=== PATIENT | female | born 1990 | race Two or more races ===

== ENCOUNTER 2017-11-25 18:05 | Emergency (ER) | payer OTHER ==
[~2017-11-25] VITALS: Ht 154.9 cm; Wt 65.8 kg
[2017-11-25 18:21] VITALS: BP 130/80
--- NOTE | 2017-11-25 18:27 | Emergency Room Report ---
History of Present Illness General Chief Complaint: Eye Problems Source: Patient Present Illness HPI 27-year-old female presents to the emergency department complaining of 5/10 in severity right eye irritation that she describes as scratching sensation x2 days. Patient reports erythema and increased lacrimation. Patient denies contact lens use. Patient denies discharge or painful eye movements. Patient reports that initially her eye was very itchy. Patient denies swelling of the lids, crusting or appreciable trauma to the eye. Denies: Loss of vision, Floaters, Flashing lights, or Diplopia/blurry vision,. Allergies: Coded Allergies: No Known Allergies (Unverified , 11/25/17) Patient History Past Medical History: see triage record Past Surgical History: none Pertinent Family History: none Last Menstrual Period: 11/07/17 Immunizations: UTD Reviewed Nursing Documentation: PMH: Agreed, PSxH: Agreed Nursing Documentation-PMH Past Medical History: No Stated History Review of Systems All Other Systems: negative except mentioned in HPI Physical Exam Vital Signs Date Time Temp Pulse Resp B/P (MAP) Pulse Ox O2 Delivery O2 Flow Rate FiO2 11/25/17 18:21 98.8 84 18 130/80 99 Room Air Sp02 EP Interpretation: reviewed, normal General Appearance: no apparent distress, alert, GCS 15, non-toxic Head: normocephalic, atraumatic Eyes: right eye fluoroscene uptake - Increase fluorescein uptake in a linear fashion in the 7 o 'clock position of the Right eye, there is no involvement of the iris or pupil. Negative Divya sign. , bilateral eye normal inspection, bilateral eye PERRL, bilateral eye visual acuity - 20/50 bilateral eyes ENT: hearing grossly normal, normal voice Neck: full range of motion Respiratory: lungs clear, normal breath sounds, speaking full sentences Cardiovascular #1: regular rate, rhythm Musculoskeletal: back normal, gait/station normal, normal range of motion Neurologic: alert, oriented x3, responsive, motor strength/tone normal, sensory intact, speech normal, grossly normal Psychiatric: judgement/insight normal Skin: normal color, no rash, warm/dry, well hydrated Medical Decision Making PA Attestation Dr. salguero is my supervising Physician whom patient management has been discussed with. Diagnostic Impression: Primary Impression: Corneal abrasion, right Qualified Codes: S05.01XA - Injury of conjunctiva and corneal abrasion without foreign body, right eye, initial encounter ER Course 27-year-old female presents to the emergency department complaining of 5/10 in severity right eye irritation that she describes as scratching sensation x2 days. Patient reports erythema and increased lacrimation. Patient denies contact lens use. Patient denies discharge or painful eye movements. Patient reports that initially her eye was very itchy. Patient denies swelling of the lids, crusting or appreciable trauma to the eye. Denies: Loss of vision, Floaters, Flashing lights, or Diplopia/blurry vision,. - Pt [reports/denies] Contact lens use. Ddx considered but are not limited to: corneal abrasion, acute glaucoma, globe rupture, FB, Corneal Ulcer, conjunctivitis. Iridis Vital signs: are WNL, pt. is afebrile H&PE are most consistent with: corneal abrasion ORDERS: -Tetracaine and Fluorescein Stain of the Right eye: -Increase fluorescein uptake in a linear fashion in the 7 o 'clock position of the Right eye, there is no involvement of the iris or pupil. Negative Divya sign. Pt. had positive relief of pain with tetracaine drops. there was negative evidence of Fb, deep ulcer, or rupture. ED INTERVENTIONS: none at this time. DISCHARGE: At this time pt. is stable for d/c to home. Will provide printed patient care instructions, and any necessary prescriptions. Care plan and follow up instructions have been discussed with the patient prior to discharge. . Last Vital Signs Date Time Temp Pulse Resp B/P (MAP) Pulse Ox O2 Delivery O2 Flow Rate FiO2 11/25/17 18:21 98.8 84 18 130/80 99 Room Air Disposition: HOME, SELF-CARE Condition: Stable Scripts Acetaminophen* (TYLENOL EXTRA STRENGTH*) 500 Mg Tablet 500 MG ORAL Q6H, #20 TAB 0 Refills Prov: Magdalena Mensah P.A. 11/25/17 Ofloxacin (OCUFLOX) 5 Ml Drops 2 DROP OP TID, #5 ML Prov: Magdalena Mensah P.A. 11/25/17 Patient Instructions: Corneal Abrasion Additional Instructions: Take medications as directed. Follow up with a OPHTHALMOLOGY with-in 72 HOurs, even if your symptoms have resolved. --Please review list of primary care clinics, if you do not already have a primary care provider Return sooner to ED if new symptoms occur, or current symptoms become worse. - Please note that this Emergency Department Report was dictated using [employer] room supervisor technology software, occasionally this can lead to erroneous entry secondary to interpretation by the dictation equipment. Magdalena Mensah Nov 25, 2017 18:26
[2017-11-25] MEDS ORDERED: Fluorescein Strips RIGHT EYE ONE (18:30)
[2017-11-25] MEDS ORDERED: Tetracaine 0.5% Opth 4ml Soln RIGHT EYE ONE (18:30)
[2017-11-25] MEDS ORDERED: TYLENOL EXTRA500 MG ORAL (19:04)
[2017-11-25] MEDS ORDERED: OCUFLOX5 ML OP (19:04)
[2017-11-25 19:09] VITALS: BP 134/84
== END 2017-11-25 19:09 | disposition home or self-care (01) ==
LOC: EMR 18:31
DX: S05.01XA Injury of conjunctiva and corneal abrasion without foreign body, right eye, initial encounter (principal); X58.XXXA Exposure to other specified factors, initial encounter; Y92.9 Unspecified place or not applicable
CPT/HCPCS: 99283

== ENCOUNTER 2018-01-08 19:29 | Emergency (ER) | payer OTHER ==
[~2018-01-08] VITALS: Ht 154.9 cm; Wt 63.5 kg
[~2018-01-08 19:29] MED LIST: OCUFLOX5 ML OP; TYLENOL EXTRA500 MG ORAL
[2018-01-08] MEDS ORDERED: Ketorolac 30mg Inj IM ONE (20:45)
--- NOTE | 2018-01-08 21:08 | Emergency Room Report ---
History of Present Illness General Chief Complaint: Lower Extremity Injury Source: Patient Present Illness HPI 27 yo female patient presents to ER complaining of left knee pain since yesterday. Reports moving couch last night using leg and began feeling pain symptoms afterwards. Report hit [place], not knee; denies pain in clemens or lower leg; reports mild swelling of knee; denies clemens swelling. Reports pain with knee extension. Reports taking pain medication last night, none today. Reports pain with ambulation, able to walk independently. Reports boyfriend drove to her to ER. Denies fever, chest pain, SOB Allergies: Coded Allergies: No Known Allergies (Unverified , 11/25/17) Patient History Past Medical History: see triage record Last Menstrual Period: dec 23 Now: No : 2 Reviewed Nursing Documentation: PMH: Agreed, PSxH: Agreed Review of Systems All Other Systems: negative except mentioned in HPI Physical Exam Vital Signs Date Time Temp Pulse Resp B/P (MAP) Pulse Ox O2 Delivery O2 Flow Rate FiO2 01/08/18 19:49 98.5 92 18 131/85 99 Room Air 98.4 Sp02 EP Interpretation: reviewed, normal General Appearance: well appearing, no apparent distress, alert, GCS 15 Head: normocephalic, atraumatic Eyes: bilateral eye normal inspection, bilateral eye PERRL ENT: hearing grossly normal, normal pharynx, no angioedema, normal voice, uvula midline, moist mucus membranes Neck: full range of motion Respiratory: lungs clear, normal breath sounds, no rhonchi, no respiratory distress, no accessory muscle use, no wheezing, speaking full sentences Cardiovascular #1: regular rate, rhythm, no edema Gastrointestinal: non tender, soft, no mass, non-distended, no guarding, no rebound Genitourinary: no CVA tenderness Musculoskeletal: back normal, digits/nails normal, gait/station normal, normal range of motion, no calf tenderness, Evelia's Sign negative, swelling - left knee , , other - NVI; negative anterior and posterior drawer, negative Jesús; no signs of dislocation, no bulge sign, no warmth to palpation, no erythema, no ecchymosis, tender - on medial aspect of knee Neurologic: alert, oriented x3, responsive, motor strength/tone normal, sensory intact Psychiatric: mood/affect normal Skin: no rash Lymphatic: no adenopathy Medical Decision Making PA Attestation Dr. Neal is my supervising Physician whom patient management has been discussed with. Diagnostic Impression: Primary Impression: Knee pain ER Course Pt. presents to the ED c/o knee pain. Ddx considered but are not limited to fracture, sprain, strain, contusion. Vital signs: are WNL, pt. is afebrile Ordered xray and pain medication. ER COURSE: An x-ray of the right knee was ordered, results show no acute fracture, per the preliminary reading. Dr. Neal agrees with negative x-ray results. Patient reports feeling better following administration of medication. SUMI Wrap applied to patient knee. The affected knee was checked afterwards by me showing good alignment and support with distal neurovascular functioning intact. Crutches provided due to patient walking with limp. Patient instructed to be WBAT. DISCHARGE: -Rx provided for Tylenol for pain symptoms. At this time pt. is stable for d/c to home. Patient is resting comfortably in no acute distress, nontoxic appearing, smiling and talking without difficulty. Will provide printed patient care instructions, and any necessary prescriptions. Patient instructed to follow with primary care provider in 3 - 5 days and to request further orthopedic follow-up. Care plan and follow up instructions have been discussed with the patient prior to discharge. Patient instructed on RICE method: rest, ice, compression, elevation. Patient instructed to WBAT. Take medications as directed. Patient questions asked and answered. ER precautions given, patient instructed to return to ER immediately for any new or worsening of symptoms. Other X-Ray Diagnostic Results Other X-Ray Diagnostic Results : X-Ray ordered: left knee # of Views/Limited Vs Complete: 3 View Indication: Pain EP Interpretation: Yes PA Xray: Interpretation reviewed, by supervising MD, and agrees with findings. Interpretation: no dislocation, no soft tissue swelling, no fractures Impression: No acute disease PA Scribe Text Mateus Luna PA-C Last Vital Signs Date Time Temp Pulse Resp B/P (MAP) Pulse Ox O2 Delivery O2 Flow Rate FiO2 01/08/18 20:47 98.5 01/08/18 19:49 92 18 131/85 99 Room Air Disposition: HOME, SELF-CARE Condition: Stable Scripts Acetaminophen* (TYLENOL EXTRA STRENGTH*) 500 Mg Tablet 500 MG ORAL Q8H Y for Prn Headache/Temp > 101, #30 TAB 0 Refills Prov: Florentin Luna 01/08/18 Patient Instructions: Knee Sprain Additional Instructions: Patient instructed to follow up with primary care provider and discuss further referral to orthopedics. Patient instructed on RICE method: rest, ice, compression, elevation. Patient instructed to WBAT. Take medications as directed. Patient questions asked and answered. ER precautions given, patient instructed to return to ER immediately for any new or worsening of symptoms. Florentin Luna Jan 08, 2018 21:08
[2018-01-08] MEDS ORDERED: TYLENOL EXTRA500 MG ORAL (21:16)
[2018-01-08 21:50] VITALS: BP 131/85
--- NOTE | 2018-01-09 08:59 | Diagnostic Imaging Report ---
Indications: Pain, injury Technique: Three views of the right knee Comparison: None Findings: No acute fractures. No dislocations. Joint spaces are preserved. No radiopaque foreign body. Normal mineralization. Impression: No acute process
== END 2018-01-08 21:48 | disposition home or self-care (01) ==
LOC: EMR 20:19
DX: M25.562 Pain in left knee (principal)
CPT/HCPCS: 73562; 96372; 99283; J1885

== ENCOUNTER 2018-09-22 17:14 | Emergency (ER) | payer OTHER ==
[~2018-09-22] VITALS: Ht 154.9 cm; Wt 63.5 kg
[2018-09-22 17:17] VITALS: BP 129/85
[2018-09-22] MEDS ORDERED: LEXAPRO5 MG ORAL (17:23)
--- NOTE | 2018-09-22 17:41 | Emergency Room Report ---
History of Present Illness General Chief Complaint: Earache Source: Patient Present Illness HPI 27-year-old female presents to the emergency department complaining of nasal congestion, sore throat with 10 out of 10 in severity ear pain that had acute exacerbation this a.m. As well as sinus pressure headache 2 days. Patient reports chills she denies fever she states she is up-to-date with vaccinations except for this years vaccine. She reports that her daughter had similar symptoms but presented several days earlier. Denies lethargy, neck pain/ stiffness, irritability, photophobia dehydration, N/V/D. Denies Cp, Palpitations , LOC, AMS, seizures, paresthesias, or changes in Hearing or vision, no Sudden severe GARCIA. Denies hx of smoking, asthma or COPD. Allergies: Coded Allergies: No Known Allergies (Unverified , 09/22/18) Patient History Past Medical History: see triage record Past Surgical History: none Pertinent Family History: none Last Menstrual Period: 09/20/18 Reviewed Nursing Documentation: PMH: Agreed; PSxH: Agreed Nursing Documentation-PMH Past Medical History: No Stated History Review of Systems All Other Systems: negative except mentioned in HPI Physical Exam Vital Signs Date Time Temp Pulse Resp B/P (MAP) Pulse Ox O2 Delivery O2 Flow Rate FiO2 09/22/18 17:17 98.1 107 16 129/85 98 Room Air Sp02 EP Interpretation: reviewed, normal General Appearance: no apparent distress, alert, GCS 15, non-toxic Head: normocephalic, atraumatic Eyes: bilateral eye normal inspection, bilateral eye PERRL ENT: hearing grossly normal, normal voice, pharyngeal erythema, other - LEft TM is erythematous with rupture and dry blood. Right TM and Canal are WNL. Neck: full range of motion Respiratory: lungs clear, normal breath sounds, no respiratory distress, no wheezing, speaking full sentences Cardiovascular #1: regular rate, rhythm Musculoskeletal: back normal, gait/station normal, normal range of motion, non- tender Neurologic: alert, oriented x3, responsive, motor strength/tone normal, sensory intact, speech normal, grossly normal Psychiatric: judgement/insight normal Skin: normal color, no rash, warm/dry, well hydrated Lymphatic: no adenopathy Medical Decision Making PA Attestation Dr. salguero is my supervising Physician whom patient management has been discussed with. Diagnostic Impression: Primary Impression: Otitis media of left ear with rupture of tympanic membrane Additional Impression: Pharyngitis, acute Qualified Codes: J02.9 - Acute pharyngitis, unspecified ER Course 27-year-old female presents to the emergency department complaining of nasal congestion, sore throat with 10 out of 10 in severity ear pain that had acute exacerbation this a.m. As well as sinus pressure headache 2 days. Patient reports chills she denies fever she states she is up-to-date with vaccinations except for this years vaccine. She reports that her daughter had similar symptoms but presented several days earlier. Denies lethargy, neck pain/ stiffness, irritability, photophobia dehydration, N/V/D. Denies Cp, Palpitations , LOC, AMS, seizures, paresthesias, or changes in Hearing or vision, no Sudden severe GARCIA. Denies hx of smoking, asthma or COPD. Ddx considered but are not limited to OM, OE, mastoiditis, TM perforation, FB Vital signs: are WNL, pt. is afebrile H&PE are most consistent with otitis media ORDERS: none required at this time, the diagnosis is clinical -OTOSCOPY: Left TM is erythematous with rupture and dry blood. Right TM and Canal are WNL. ED INTERVENTIONS: Tylenol pO DISCHARGE: At this time pt. is stable for d/c to home. With PO ABX. Will provide printed patient care instructions, and any necessary prescriptions. Care plan and follow up instructions have been discussed with the patient prior to discharge. Last Vital Signs Date Time Temp Pulse Resp B/P (MAP) Pulse Ox O2 Delivery O2 Flow Rate FiO2 09/22/18 17:17 98.1 107 16 129/85 98 Room Air Disposition: HOME, SELF-CARE Condition: Stable Scripts Oxymetazoline HCl (Afrin) 15 Ml [place] 2 SPRAYS NASAL TWICE A DAY, #15 ML DO NOT USE FOR MORE THAN 3 CONSECUTIVE DAYS. Prov: Magdalena Mensah 09/22/18 Codeine/Promethazine Hcl* (PROMETHAZINE-CODEINE SYRUP*) 118 Ml Syrup 5 ML ORAL Q6H PRN for For Cough, #120 ML 0 Refills Prov: Magdalena Mensah 09/22/18 Acetaminophen* (TYLENOL EXTRA STRENGTH*) 500 Mg Tablet 500 MG ORAL Q6H PRN for Mild Pain/Temp > 100.5, #20 TAB 0 Refills Prov: Magdalena Mensah 09/22/18 Amoxicillin/Potassium Clav 875-125* (AUGMENTIN 875-125 TABLET*) 1 Each Tablet 1 TAB ORAL TWICE A DAY for 10 Days, #20 TAB Prov: Magdalena Mensah 09/22/18 Patient Instructions: Otitis Media, Adult, [id number], Eardrum Perforation, [id number] Additional Instructions: Take medications as directed. Follow up with a Primary Care Provider in 3-5 days, even if your symptoms have resolved. --Please review list of primary care clinics, if you do not already have a primary care provider Return sooner to ED if new symptoms occur, or current symptoms become worse. - Please note that this Emergency Department Report was dictated using [employer] net programmer technology software, occasionally this can lead to erroneous entry secondary to interpretation by the dictation equipment. Magdalena Mensah Sep 22, 2018 17:41
[2018-09-22] MEDS ORDERED: AFRIN NASAL SPR30 ML NASAL (17:43)
[2018-09-22] MEDS ORDERED: PROMETHAZINE-C118 M1 ORAL (17:43)
[2018-09-22] MEDS ORDERED: AUGMENTIN 875-1 EAC1 ORAL (17:43)
[2018-09-22] MEDS ORDERED: TYLENOL EXTRA500 MG ORAL (17:43)
[2018-09-22 18:01] VITALS: BP 129/85
== END 2018-09-22 18:00 | disposition home or self-care (01) ==
LOC: EMR 17:57
DX: H66.92 Otitis media, unspecified, left ear (principal); H72.92 Unspecified perforation of tympanic membrane, left ear; J02.9 Acute pharyngitis, unspecified; R51 Headache
CPT/HCPCS: 99283